=== PATIENT | male | born 1990 | race Caucasian/White ===

== ENCOUNTER 2016-10-25 18:53 | Emergency (ER) | payer BC ==
[2016-10-25] MEDS ORDERED: Lidocaine 2% Viscous Solution 15 ML Cup PO ONE (19:27)
[2016-10-25] MEDS ORDERED: Benzocaine 20% Topical Spray UD MUCMEM ONE (19:27)
--- NOTE | 2016-10-25 19:30 | EDM.PDOC ---
ED HPI GENERAL MEDICAL PROBLEM - General Chief Complaint: General Stated Complaint: TOOTH PAIN/SWOLLEN LT CHEEK Time Seen by Provider: 10/25/16 19:20 Source of Information: Reports: Patient History Limitations: Reports: No limitations - History of Present Illness INITIAL COMMENTS - FREE TEXT/NARRATIVE: HISTORY AND PHYSICAL: History of present illness: [Comes to the ER complaining of L tooth pain and swelling, present for the past 2 days. Feels it is worsening. Pain kept him awake last night. ] Review of systems: As per history of present illness and below otherwise all systems reviewed and negative. Past medical history: As per history of present illness and as reviewed below otherwise noncontributory. Surgical history: w As per history of present illness and as reviewed below otherwise noncontributory. Social history: No reported history of drug or alcohol abuse. Family history: As per history of present illness and as reviewed below otherwise noncontributory. Physical exam: HEENT: Atraumatic, normocephalic. Teeth in poor dentition. Several cracked teeth. Swelling and erythema to gum surrounding broken teeth. mucous membranes pink and moist.,throat clear, neck supple, no lymphadenopathy. Lungs: Clear to auscultation, breath sounds equal bilaterally. Heart: S1S2, regular rate and rhythm. Abdomen: Soft, nondistended, nontender. Negative for masses or hepatosplenomegaly. Negative for costovertebral tenderness. Pelvis: Stable nontender. Genitourinary: Deferred. Rectal: Deferred. Extremities: Neurovascular unremarkable. Neuro: Awake, alert, oriented. Motor and sensory unremarkable throughout. Exam nonfocal. Diagnostics: [dental abscess ] Therapeutics: [Toradol 60 mg IM, dental balls] Impression: [Dental pain] Plan: [Rx written for clindamycin 300 mg tablets #40 sig one by mouth 4 times a day zero refills. Dental balls given. Tylenol and ibuprofen. ] Definitive disposition and diagnosis as appropriate pending reevaluation and review of above. left facial area Pain Score (Numeric/FACES): 7 - Related Data Allergies Allergy/AdvReac Type Severity Reaction Status Date / Time Penicillins Allergy Other Verified 10/25/16 19:14 Home Meds: Home Meds . [No Known Home Meds] 10/25/16 [History] ED ROS GENERAL - Review of Systems Review Of Systems: ROS reveals no pertinent complaints other than HPI. ED EXAM, GENERAL - Physical Exam Exam: See Below Course - Vital Signs Last Recorded V/S: Last Vital Signs Temp 97.9 F 10/25/16 19:47 Pulse 81 10/25/16 19:47 Resp 16 10/25/16 19:47 BP 120/68 10/25/16 19:47 Pulse Ox 98 10/25/16 19:47 - Orders/Labs/Meds Meds: Medications Discontinued Medications Generic Name Dose Route Start Last Admin Trade Name Letitia PRN Reason Stop Dose Admin Benzocaine 2 each 10/25/16 19:27 10/25/16 19:42 Hurricaine One 20% MUCMEM 10/25/16 19:28 2 each ONETIME ONE Administration Ketorolac Tromethamine 60 mg 10/25/16 19:27 10/25/16 19:44 Toradol IM 10/25/16 19:28 Not Given ONETIME ONE Lidocaine HCl 15 ml 10/25/16 19:27 10/25/16 19:42 Xylocaine 2% Viscous PO 10/25/16 19:28 15 ml ONETIME ONE Administration Departure - Departure Time of Disposition: 19:30 Disposition: Home, Self-Care 01 Condition: good Clinical Impression: Pain, dental Instructions: Dental Abscess, [id number] Referrals: PCP,None [Primary Care Provider] - Forms: ED Department Discharge Additional Instructions: The following information is given to patients seen in the emergency department who are being discharged to home. This information is to outline your options for follow-up care. We provide all patients seen in our emergency department with a follow-up referral. The need for follow-up, as well as the timing and circumstances, are variable depending upon the specifics of your emergency department visit. If you don't have a primary care physician on staff, we will provide you with a referral. We always advise you to contact your personal physician following an emergency department visit to inform them of the circumstance of the visit and for follow-up with them and/or the need for any referrals to a consulting specialist. The emergency department will also refer you to a specialist when appropriate. This referral assures that you have the opportunity for follow-up care with a specialist. All of these measure are taken in an effort to provide you with optimal care, which includes your follow-up. Under all circumstances we always encourage you to contact your private physician who remains a resource for coordinating your care. When calling for follow-up care, please make the office aware that this follow-up is from your recent emergency room visit. If for any reason you are refused follow-up, please contact the [facility] emergency department at and asked to speak to the emergency department charge nurse. See list of local dentists. Take Tylenol and ibuprofen as needed for discomfort. Take clindamycin exactly as prescribed. Take the full course of medication. Return to ER as needed as discussed.
[2016-10-25] MEDS: Ketorolac 60 MG/2 ML SDV IM ONE ×2 (19:42→19:44)
[2016-10-25 19:50] VITALS: BP 120/68
== END 2016-10-25 19:47 | disposition home or self-care (01) ==
LOC: MW.ED 18:53
DX: K08.89 Other specified disorders of teeth and supporting structures (principal); Z88.0 Allergy status to penicillin
CPT/HCPCS: 99282; A9270; 99283; J1885